=== PATIENT | male | born 2005 | race Hispanic/Latino ===

== ENCOUNTER 2024-04-27 02:49 | Emergency (ER) | payer BC, SELFPAY ==
[2024-04-27] MEDS ORDERED: Ketorolac Tromethamine 30 MG (1 mL) VIAL ONE (03:54)
[2024-04-27] MEDS ORDERED: Fluorescein Opthalmic Strip ONE (03:54)
[2024-04-27] MEDS ORDERED: Proparacaine 0.5% Opth 15 ML BOT ONE (03:56)
== END 2024-04-27 05:05 | disposition home or self-care (01) ==
LOC: ERS 02:49
DX: H16.133 Photokeratitis, bilateral (principal)
CPT/HCPCS: 96372; 99283; J1885